=== PATIENT | female | born 1985 | race African-American/Black ===

== ENCOUNTER 2016-11-03 14:15 | Emergency (ER) | payer MEDICAID, OTHER ==
[~2016-11-03] VITALS: Ht 167.6 cm; Wt 106.6 kg
[2016-11-03 14:45] VITALS: BP 119/67
== END 2016-11-03 15:36 | disposition home or self-care (01) ==
LOC: ER 14:34
DX: J45.909 Unspecified asthma, uncomplicated (principal); Z76.0 Encounter for issue of repeat prescription